=== PATIENT | female | born 1980 | race Caucasian/White ===

== ENCOUNTER → 2016-04-07 | Outpatient (CLI) | payer BC ==
[~2016-04-07] MED LIST: CALNTAB; LABE100T2 PO; OXYC1TAB63 PO
== END ==
LOC: CLAB 08:15
PROVIDERS: ATTEND Obstetrics & Gynecology
DX: O36.0191 Maternal care for anti-D [Rh] antibodies, unspecified trimester, fetus 1 (principal)
CPT/HCPCS: 36415; 86850; 86900; 86901; 90384; 96372; J2790

== ENCOUNTER 2016-06-21 23:58 | Inpatient (IN) | payer BC ==
[~2016-06-21] VITALS: Ht 152.4 cm; Wt 95.3 kg
[2016-06-22] VITALS (45 sets, daily range): BP systolic 116–169; BP diastolic 59–100; PULSE 79–114; RESP 16–20; TEMP 98.1–99; O2SAT 99
[2016-06-22] MEDS: LACTATED RINGER'S 1000 ML INJ 1,000 ML IV SCH ×4 (00:52→15:46)
[2016-06-22] MEDS ORDERED: LACTATED RINGER'S 1000 ML INJ 1,000 ML IV PRN (00:52)
--- NOTE | 2016-06-22 00:52 | PD ---
HPI Chief Complaint Rupture membranes with contractions Date Seen: June 22, 2016 Time Seen: 00:46 Travel History International Travel<30 Days: No Contact w/Intl Traveler<30Days: No Known Affected Area: No History of Present Illness HPI 35-year-old who is at 38 weeks and 4 days comes in complaining of rupture membranes at approximately 10:45 PM with the initiation of contractions which are now regular. Patient denies vaginal bleeding she does have gestational diabetes which has been diet controlled this . Patient has a history of preeclampsia with the last and an induction done. She is group B strep positive Para: 1 : 2 History Past Medical History Narrative Medical Gestational diabetes with this diet controlled Preeclampsia with the last Obstetric History Obstetric History Spontaneous vaginal delivery Past Surgical History Narrative Surgical [place] tooth removal Family History Family History: Negative Social History Alcohol Use: No Tobacco Use: No Substance Abuse: No Review of Systems Except as stated in HPI: all other systems reviewed are Neg Physical Exam 160/98 Narrative GENERAL: Well-nourished, well-developed patient. SKIN: Warm and dry. HEAD: Normocephalic and atraumatic. EYES: No scleral icterus. No injection or drainage. ENT: No nasal drainage noted. Mucous membranes pink. Airway patent. NECK: Supple, trachea midline. No JVD. CARDIOVASCULAR: Regular rate and rhythm without murmurs, gallops, or rubs. RESPIRATORY: Breath sounds equal bilaterally. No accessory muscle use. BREASTS: Bilateral exam showed no masses , no retractions, no nipple discharge. ABDOMEN/GI: Abdomen soft, non-tender, bowel sounds present, no rebound, no guarding Gravid to [-39] weeks size Fundal Height: [-] GENITOURINARY: External Genitalia: intact and normal in appearance BUS glands: [-Normal] Cervix: [-Mid position] Dilatation: [-5-6] Effacement: [-90] Station: [--2] Presentation: [Vertex-] Membranes: ruptured-clear Uterine Contractions: [-Every 5 minutes] FHT's: Category: [-1] Baseline: [140-] Reactive: [Moderate-] Variability: [Moderate-] Decels: [-Absent] EXTREMITIES: No cyanosis or edema. BACK: Nontender without obvious deformity. No CVA tenderness. NEUROLOGICAL: Awake and alert. Motor and sensory grossly within normal limits. Five out of 5 muscle strength in all muscle groups. Normal speech. Data Data Vital Signs Reviewed: Yes MDM Plan 35-year-old who is at 38 weeks and 4 days #1 spontaneous rupture membranes with initiation of labor patient will be admitted #2 group B strep positive we'll treat with penicillin #3 diet controlled gestational diabetes patient states this is well controlled #4 history of preeclampsia with the last blood pressure is elevated upon arrival will order [facility] labs at this time and repeat blood pressures Dr. michele was informed of this patient's arrival and admission Diagnosis Diagnosis: Primary Impression: 38 weeks gestation of Additional Impressions: Elevated blood pressure affecting , antepartum Group beta Strep positive Gestational diabetes Gestational diabetes mellitus (GDM) in childbirth, diet controlled Carmen Holcomb MD June 22, 2016 00:52
[2016-06-22] MEDS ORDERED: OXYTOCIN 30 UNITS-500ML PREMIX 500 ML IV ONE (01:00)
[2016-06-22] MEDS ORDERED: SODIUM CHLORID 0.9% 500 ML INJ 500 ML IV PRN (01:00)
[2016-06-22] MEDS ORDERED: MINERAL OIL 10 ML VIAL TOPICAL PRN (01:00)
[2016-06-22] MEDS ORDERED: PENICILLIN G POTASSIUM INJ 5,000,000 UNITS in SODIUM CHLORIDE 0.9% INJ 100 ML IV ONE (01:00)
[2016-06-22] MEDS ORDERED: [UNRECOGNIZED DRUG - REMARK] PO SCH (01:00)
[2016-06-22] MEDS ORDERED: LIDOCAINE HCL 1% 50 ML VIAL I-DERMAL PRN (01:00)
[2016-06-22] MEDS ORDERED: LIDOCAINE HCL 1% 50 ML VIAL INFIL PRN (01:00)
[2016-06-22] MEDS ORDERED: SODIUM CHLOR 0.9% 1000 ML INJ 1,000 ML IV PRN (01:12)
[2016-06-22 01:14] LABS: AUTOMATED NEUTROPHIL # 8.1 TH/MM3 (1.8-7.7); BASOPHIL % 0.4 % (0.0-2.0); EOSINOPHIL # 0.1 TH/MM3 (0-0.4); EOSINOPHIL % 0.5 % (0.0-4.0); HEMATOCRIT 37.9 % (35.0-46.0); HEMO FLAGS DIFF FINAL; LYMPH % 25.2 % (9.0-44.0); LYMPHOCYTE # 3.1 TH/MM3 (1.0-4.8); MEAN CELL VOLUME 82.3 FL (80.0-100.0); MONO % 8.8 % (0.0-8.0); NEUT % 65.1 % (16.0-70.0); PLATELET COUNT 210 TH/MM3 (150-450); RED CELL DISTRIBUTION WIDTH 14.2 % (11.6-17.2); WHITE BLOOD COUNT 12.4 TH/MM3 (4.0-11.0)
[2016-06-22] MEDS ORDERED: CALNTAB (01:22)
[2016-06-22 01:24] LABS: BICARBONATE 23.5 MEQ/L (21.0-32.0); POTASSIUM 4.1 MEQ/L (3.5-5.1); URIC ACID 5.6 MG/DL (2.6-6.0)
[2016-06-22] MEDS ORDERED: ONDANSETRON HCL 4 MG/2 ML VIAL ONE (01:26)
[2016-06-22] MEDS ORDERED: MAGNESIUM SULFATE 40 GM PREMIX 1,000 ML ONE (01:34)
[2016-06-22] MEDS ORDERED: MAGNESIUM SULFATE 40 GM PREMIX 1,000 ML IV SCH (02:08)
[2016-06-22] MEDS ORDERED: LIDOCAINE 2% JELLY 30 ML TUBE ONE (02:09)
[2016-06-22] MEDS ORDERED: ZOLPIDEM TARTRATE 5 MG TAB PO PRN (02:15)
[2016-06-22] MEDS ORDERED: ALUMINUM/MAGNESIUM/SIMETH 30 ML CUP PO PRN (02:15)
[2016-06-22] MEDS ORDERED: oxyCODONE/ACETAMINOPHEN 5 MG/325 MG TAB PO PRN (02:15)
[2016-06-22] MEDS ORDERED: NIFEdipine 10 MG CAP PO PRN ×3 (02:15→03:00)
[2016-06-22] MEDS ORDERED: CALCIUM GLUCONATE 10% 1 GM/10 ML VIAL IV PUSH PRN (02:15)
[2016-06-22] MEDS ORDERED: SODIUM CHLORIDE 0.9% FLUSH 10 ML FLUSH IV FLUSH PRN ×2 (02:15)
[2016-06-22] MEDS ORDERED: ONDANSETRON ODT 4 MG TAB PO PRN (02:15)
[2016-06-22] MEDS ORDERED: ACETAMINOPHEN 325 MG TAB PO PRN (02:15)
[2016-06-22] MEDS ORDERED: BENZOCAINE 20% TOPICAL SPRAY 60 ML CAN TOPICAL PRN (02:15)
[2016-06-22] MEDS ORDERED: LABETALOL HCL 100 MG/20 ML VIAL IV PUSH PRN (03:15)
[2016-06-22] MEDS: IBUPROFEN 600 MG TAB PO PRN ×2 (03:41→16:11)
[2016-06-22] MEDS: PENICILLIN G POTASSIUM INJ 2,500,000 UNITS in SODIUM CHLORIDE 0.9% INJ 100 ML IV SCH ×3 (05:00→13:00)
[2016-06-22] MEDS: oxyCODONE/ACETAMINOPHEN 5 MG/325 MG TAB PO PRN (06:15)
[2016-06-22] MEDS: SODIUM CHLORIDE 0.9% FLUSH 10 ML FLUSH IV FLUSH SCH ×2 (09:00→21:00)
[2016-06-22] MEDS ORDERED: SODIUM CHLORIDE 0.9% FLUSH 10 ML FLUSH IV FLUSH SCH (09:00)
[2016-06-22] MEDS ORDERED: MEASLES, MUMPS, RUBELLA VACCINE 0.5 ML VIAL SQ ONE (16:00)
[2016-06-22] MEDS ORDERED: DIPHTH/TETANUS/ACEL PERTUSSIS (BOOSTER) 0.5 ML VIAL/PFS IM ONE (16:00)
[2016-06-22] MEDS: LABETALOL HCL 100 MG TAB PO SCH (21:00)
[2016-06-23] VITALS: BP 108/60; PULSE 87; RESP 18
[2016-06-23] MEDS: LACTATED RINGER'S 1000 ML INJ 1,000 ML IV SCH ×4 (00:52→18:08)
[2016-06-23 01:00] VITALS: BP 122/67; PULSE 85; RESP 18
[2016-06-23 02:00] VITALS: BP 122/61; PULSE 90; RESP 18
[2016-06-23 03:00] VITALS: RESP 18
[2016-06-23] MEDS: DOCUSATE SODIUM 50 MG/SENNA 8.6 MG TAB PO PRN ×2 (03:56→17:32)
[2016-06-23 05:59] LABS: AUTOMATED NEUTROPHIL # 8.4 TH/MM3 (1.8-7.7); BASOPHIL % 0.4 % (0.0-2.0); EOSINOPHIL # 0.1 TH/MM3 (0-0.4); EOSINOPHIL % 1.1 % (0.0-4.0); HEMATOCRIT 32.8 % (35.0-46.0); HEMO FLAGS DIFF FINAL; LYMPH % 24.2 % (9.0-44.0); MEAN CELL VOLUME 83.4 FL (80.0-100.0); MEAN CORPUSCULAR HEMOGLOBIN 28.5 PG (27.0-34.0); MEAN CORPUSCULAR HGB CONC 34.2 % (32.0-36.0); MONO % 7.2 % (0.0-8.0); NEUT % 67.1 % (16.0-70.0); PLATELET COUNT 182 TH/MM3 (150-450); RED BLOOD COUNT 3.94 MIL/MM3 (4.00-5.30); RED CELL DISTRIBUTION WIDTH 14.6 % (11.6-17.2); WHITE BLOOD COUNT 12.6 TH/MM3 (4.0-11.0)
[2016-06-23] MEDS: IBUPROFEN 600 MG TAB PO PRN ×4 (06:15→23:10)
[2016-06-23] MEDS: oxyCODONE/ACETAMINOPHEN 5 MG/325 MG TAB PO PRN ×4 (06:16→23:11)
[2016-06-23 09:25] VITALS: BP 120/65; PULSE 90; RESP 18; TEMP 98.2
[2016-06-23] MEDS: WITCH HAZEL 50%/GLYCERIN 12.5% 40 PAD JAR TOPICAL PRN (09:29)
[2016-06-23] MEDS: LABETALOL HCL 100 MG TAB PO SCH ×2 (09:51→21:29)
[2016-06-23 11:50] VITALS: BP 124/78; PULSE 80; RESP 18
[2016-06-23] MEDS ORDERED: DIPHTH/TETANUS/ACEL PERTUSSIS (BOOSTER) 0.5 ML VIAL/PFS IM ONE (18:45)
[2016-06-23] MEDS: SODIUM CHLORIDE 0.9% FLUSH 10 ML FLUSH IV FLUSH SCH (19:54)
[2016-06-24] MEDS: LACTATED RINGER'S 1000 ML INJ 1,000 ML IV SCH ×2 (00:52→07:28)
[2016-06-24] MEDS: oxyCODONE/ACETAMINOPHEN 5 MG/325 MG TAB PO PRN (05:40)
[2016-06-24] MEDS: DOCUSATE SODIUM 50 MG/SENNA 8.6 MG TAB PO PRN (05:40)
[2016-06-24] MEDS: IBUPROFEN 600 MG TAB PO PRN ×2 (05:40→11:25)
[2016-06-24] MEDS ORDERED: OXYC1TAB63 PO (08:35)
[2016-06-24] MEDS ORDERED: LABE100T2 PO (08:35)
--- NOTE | 2016-06-24 08:36 | HHI.DCPOC ---
Discharge Care Plan Report Symptoms to Your Doctor -Temperate above 100.5 degrees -Redness, of incision or excessive or foul smelling drainage -Unusual pain or calf pain -Increased vaginal bleeding -Painful or difficulty urinating -Feelings of extreme sadness or anxiety after 2 weeks Goals to Promote Your Health * To prevent worsening of your condition and complications * To maintain your health at the optimal level Directions to Meet Your Goals Take your medications as prescribed Follow your dietary instruction Follow activity as directed Ensure plenty of rest for recovery Drink fluids for hydration Keep your appointments as scheduled Take your immunizations and boosters as scheduled If your symptoms worsen call your PCP, if no PCP go to Urgent Care Center or Emergency Room Smoking is Dangerous to Your Health. Avoid second hand smoke Call the 24-hour crisis hotline for domestic abuse at Gerry English MD June 24, 2016 08:35
[2016-06-24] MEDS: LABETALOL HCL 100 MG TAB PO SCH (08:48)
[2016-06-24] MEDS: WITCH HAZEL 50%/GLYCERIN 12.5% 40 PAD JAR TOPICAL PRN (08:48)
[2016-06-24 08:50] VITALS: BP 141/74; PULSE 83; RESP 18; TEMP 98.4
--- NOTE | 2016-06-28 12:18 | MD ---
cc: GERRY WEBSTER ADMISSION DATE: 06/22/2016 DISCHARGE DATE: 06/24/2016 ADMISSION DIAGNOSES 1. Term , active labor. 2. Preeclampsia. DISCHARGE DIAGNOSES 1. Term , active labor. 2. Preeclampsia. 3. Delivered HISTORY OF PRESENT ILLNESS A 35-year-old white female para 0-1-0-1, LMP of 09/18/2015, EDC of 06/24/2016 by dates, 07/02/2016 by early ultrasound. Her course was benign. She had normal first TM screen with low NADINE-A hormone. She had a follow-up ultrasound which showed appropriate growth, had normal testing. Her first was notable for induction at 36 weeks for hypertension and preeclampsia. HOSPITAL COURSE She was admitted just before midnight on the night of 06/21/2016 in active labor and hypertensive with a blood pressure of 160/90 range. She rapidly progressed to a spontaneous vaginal delivery over a small first degree episiotomy. A viable, vigorous female with Apgars of 8 and 9, weight 8 pounds, 10 ounces. she received mag sulfate therapy for 24 hours and did well. BP was well-controlled with a labetalol. She was discharged home in excellent condition on 06/24/2016. She was carefully instructed in and perineal care, advised NPV, light activity, return to see me in 1 week. She will take her routine vitamins home, was given a script for Percocet 5, 1-2 p.o. q.4 hours p.r.n. pain #30 and labetalol 100 mg p.o. b.i.d. #60. Gerry Webster MD JAW/SSB /8:40 AM /12:12 PM
== END 2016-06-24 12:26 | disposition home or self-care (01) | DRG 775 ==
LOC: HOBED 23:58 → H2EB 06-22 00:58 → H2EA 06-22 04:02 → H1EA 06-23 03:20
PROVIDERS: ADMIT Obstetrics & Gynecology; ATTEND Obstetrics & Gynecology
PROC: 0HQ9XZZ Repair Perineum Skin, External Approach (ICD-10-PCS; principal; 2016-06-22)
PROC: 10E0XZZ Delivery of Products of Conception, External Approach (ICD-10-PCS; 2016-06-22)
DX: O24.429 Gestational diabetes mellitus in childbirth, unspecified control (principal); O14.94 Unspecified pre-eclampsia, complicating childbirth; O99.824 Streptococcus B carrier state complicating childbirth; Z37.0 Single live birth; Z3A.38 38 weeks gestation of pregnancy; O70.0 First degree perineal laceration during delivery; O69.1XX0 Labor and delivery complicated by cord around neck, with compression, not applicable or unspecified; O77.0 Labor and delivery complicated by meconium in amniotic fluid
CPT/HCPCS: 80048; 83735; 84450; 84550; 85025; 86703; 86900; 86901; 87535; 90715; 99285; J2405; J2540; J2590; J3010; J3475; J7120